=== PATIENT | female | born 1965 | race Caucasian/White ===

== ENCOUNTER 2016-08-14 07:02 | Inpatient (IN) | payer BC ==
[~2016-08-14] VITALS: Ht 160 cm; Wt 108.0 kg
[2016-08-14] MEDS ORDERED: OPTIRAY 350 100 ML VIAL HMH IV ONE (07:03)
[2016-08-14] MEDS ORDERED: ENOXAPARIN 120 MG/0.8 ML SYR SUBQ ONE (12:25)
[2016-08-14] MEDS ORDERED: SALINE FLUSH 10 ML FLUSH PRN (12:45)
[2016-08-14] MEDS ORDERED: MAG HYDROX 30 ML UDC PO PRN (12:45)
[2016-08-14] MEDS ORDERED: DEXTROSE 50% SYRINGE 50 ML IV PRN (12:45)
[2016-08-14] MEDS ORDERED: ACETAMINOPHEN 325 MG TAB PO PRN (12:45)
[2016-08-14] MEDS ORDERED: GLUCAGON 1 MG VIAL IM PRN (12:45)
[2016-08-14] MEDS ORDERED: ONDANSETRON 4 MG VIAL IV PRN (12:45)
[2016-08-14] MEDS ORDERED: ALU/MAG/SIM 30 ML UDC PO PRN (12:45)
[2016-08-14] MEDS: PANTOPRAZOLE 40 MG TAB PO SCH (14:53)
[2016-08-14] MEDS: SITAGLIPTIN 50 MG TAB PO SCH (14:53)
[2016-08-14 15:00] VITALS: BP_SYST 130; BP_SYST 132; RESP 18; TEMP 98.4
[2016-08-14 15:40] VITALS: BMI 42.2
[2016-08-14 16:35] VITALS: RESP 20
[2016-08-14 19:43] VITALS: BP_SYST 127; RESP 20; TEMP 98.6
[2016-08-14] MEDS: SALINE FLUSH 10 ML FLUSH SCH (21:03)
[2016-08-14] MEDS ORDERED: MORPHINE 2 MG/ML SYR IV PRN (21:55)
[2016-08-14] MEDS ORDERED: BACLOFEN 10 MG TAB PO ONE (21:55)
[2016-08-14] MEDS ORDERED: MORPHINE 4 MG/ML SYR IV PRN (22:00)
[2016-08-14 23:19] VITALS: BP_SYST 116; RESP 20; TEMP 98.7
[2016-08-15] MEDS: ENOXAPARIN 120 MG/0.8 ML SYR SUBQ SCH ×2 (01:16→13:28)
[2016-08-15 03:30] VITALS: BP_SYST 128; RESP 18; TEMP 98.4
[2016-08-15] MEDS: SODIUM CHLORIDE 0.9% FLUSH BAG 500 ML IV SCH (05:54)
[2016-08-15] MEDS: PANTOPRAZOLE 40 MG TAB PO SCH (06:54)
[2016-08-15 07:36] VITALS: BP_SYST 130; RESP 16; TEMP 98.4
[2016-08-15 09:04] VITALS: Ht 160 cm; Wt 108.0 kg
[2016-08-15] MEDS: SITAGLIPTIN 50 MG TAB PO SCH (09:29)
[2016-08-15] MEDS: SALINE FLUSH 10 ML FLUSH SCH ×2 (09:29→20:47)
[2016-08-15 11:33] VITALS: BP_SYST 132; RESP 16; TEMP 98.1
[2016-08-15] MEDS ORDERED: LEVEMIR INSULIN SUBQ ONE (12:45)
[2016-08-15] MEDS: TUSSIONEX SUSP UDC PO SCH ×2 (15:24→23:51)
[2016-08-15 15:27] VITALS: BP_SYST 130; RESP 16; TEMP 98.1
[2016-08-15 20:24] VITALS: BP_SYST 109; RESP 19; TEMP 98.7
[2016-08-15 23:41] VITALS: BP_SYST 120; RESP 18; TEMP 99.2
[2016-08-16] VITALS (7 sets, daily range): BP systolic 101–179; RESP 18; TEMP 98.1–98.9; BMI 40.4
[2016-08-16] MEDS: SODIUM CHLORIDE 0.9% FLUSH BAG 500 ML IV SCH (05:23)
[2016-08-16] MEDS: PANTOPRAZOLE 40 MG TAB PO SCH (06:14)
[2016-08-16] MEDS: TUSSIONEX SUSP UDC PO SCH ×2 (08:44→21:00)
[2016-08-16] MEDS: SITAGLIPTIN 50 MG TAB PO SCH (08:44)
[2016-08-16] MEDS: APIXABAN 5 MG TAB PO SCH ×2 (08:44→20:33)
[2016-08-16] MEDS: SALINE FLUSH 10 ML FLUSH SCH ×2 (08:44→20:33)
[2016-08-16] MEDS: METFORMIN XR 500 MG TAB PO SCH (17:04)
[2016-08-17 03:48] VITALS: BP_SYST 108; RESP 18; TEMP 98.4
[2016-08-17] MEDS: SODIUM CHLORIDE 0.9% FLUSH BAG 500 ML IV SCH (05:14)
[2016-08-17] MEDS: PANTOPRAZOLE 40 MG TAB PO SCH (06:05)
[2016-08-17 07:13] VITALS: BP_SYST 122; RESP 20; TEMP 98.5
[2016-08-17] MEDS: TUSSIONEX SUSP UDC PO SCH (08:57)
[2016-08-17] MEDS: METFORMIN XR 500 MG TAB PO SCH (08:57)
[2016-08-17] MEDS: SALINE FLUSH 10 ML FLUSH SCH (08:58)
[2016-08-17] MEDS: APIXABAN 5 MG TAB PO SCH (08:58)
[2016-08-17] MEDS: SITAGLIPTIN 50 MG TAB PO SCH (08:58)
[2016-08-17 11:58] VITALS: BP_SYST 117; RESP 18; TEMP 98.5
[2016-08-17 13:54] VITALS: BP_SYST 117; RESP 18; TEMP 98.5
== END 2016-08-17 15:48 | disposition home or self-care (01) | DRG 176 ==
LOC: ENRESERVDT → ENRESERVTM → ER 07:02 → EMR 12:42 → ENPENDDIS 12:42 → PCU2 14:16
PROVIDERS: ADMIT Internal Medicine; ATTEND Internal Medicine
CPT/HCPCS: 71010; 71260; 80048; 82553; 82947; 83735; 84484; 85025; 93971; 94799; 96372